=== PATIENT | female | born 1945 | race Caucasian/White ===

== ENCOUNTER → 2016-12-21 09:47 | Outpatient (CLI) | payer MEDICARE, OTHER ==
[2015-07-13 08:38] VITALS: BMI 35.8
[~2016-12-21 09:47] MED LIST: BAYER CHEWABLE81 MG PO; CALCIUM 600+D T1 TA1 PO; LISINOPRIL10 MG PO; OMEPRAZOLE40 MG PO; OXYBUTYNIN CHLOR5 MG PO; VALIUM 2 MG TAB2 MG PO
== END | disposition home or self-care (01) ==
LOC: D.OPS 09:47 → D.SP 10:30
DX: M25.552 Pain in left hip (principal)

== ENCOUNTER → 2017-01-10 08:40 | Outpatient (CLI) | payer MEDICARE, OTHER ==
[2015-07-13 08:38] VITALS: BMI 35.8
--- NOTE | 2017-01-10 12:03 | NUR ---
Nutrition education for pre/post-op bariatric surgery: S: Pt reports she used to be 135-140# in 2006; however, after she hurt her back she started to gain wt and now weighs 220#. Pt admits to overeating rice, pasta, bread due to being on a fixed income and those foods are cheaper to buy. Pt reports she is unable to exercise much due to back surgery and OA of the feet, knees, hips and spine. Pt does have a recumbent bicycle she has started to ride. Pt eats most meals at home; however, pt does not like to cook and uses convenience foods. Pt does not sleep well due to increased pain. Pt has no family support here; all her friends live in [place]. O: 71 year old female Ht: 5'5" Wt: 220# IBW: 125# +/-10% BMI: 36.6 PMH: Back surgery, OA A: Reviewed pre/post-op diet phases. Discussed clear liquids, full liquids, pureed, soft and regular diet and reviewed sample menus of all. Discussed liquids between meals; no straws; 3 ounce meal size; protein needs; protein supplements; no sweets, carbonated drinks, high fat foods; pouch stretching; daily supplements. Discussed pts weight goal post-surgery. Pt with fair understanding of information provided. RDN feels pt with realistic expectations for weight loss after surgery and will be compliant with post-surgery diet. P: Provided pt with printed diet information and RDN name and phone number. RDN will be available if needed. Thank you for the consult.
== END | disposition home or self-care (01) ==
LOC: D.FANS 08:40
DX: E66.9 Obesity, unspecified (principal)

== ENCOUNTER → 2017-01-19 11:40 | Outpatient (CLI) | payer MEDICARE, OTHER ==
[2015-07-13 08:38] VITALS: BMI 35.8
== END | disposition home or self-care (01) ==
LOC: D.RAD 01-17 10:30 → D.CT 01-17 11:30 → D.RAD 11:40
DX: M54.16 Radiculopathy, lumbar region (principal)

== ENCOUNTER → 2017-03-21 07:16 | Outpatient (CLI) | payer MEDICARE, OTHER ==
[2015-07-13 08:38] VITALS: BMI 35.8
== END | disposition home or self-care (01) ==
LOC: D.OPS 03-20 08:13 → D.RAD 08:00 → D.OPS 08:00
DX: M25.552 Pain in left hip (principal); M16.0 Bilateral primary osteoarthritis of hip

== ENCOUNTER → 2017-04-11 10:39 | Outpatient (CLI) | payer MEDICARE, OTHER ==
[2015-07-13 08:38] VITALS: BMI 35.8
[~2017-04-11 10:39] MED LIST changes: +HYDROCODON-ACE1 EAC7 PO; -LISINOPRIL10 MG PO; +VESICARE5 MG PO; +ZESTRIL10 MG PO; +ZOFRAN ODT4 MG/UDTAB PO
== END | disposition home or self-care (01) ==
LOC: D.RT 10:39
DX: R06.09 Other forms of dyspnea (principal)

== ENCOUNTER → 2017-04-27 08:22 | Outpatient (CLI) | payer MEDICARE, OTHER ==
[2015-07-13 08:38] VITALS: BMI 35.8
[2017-04-27 10:00] LABS: BASOPHILS 0.2 % (0-2); EOSINOPHILS 0.8 % (0-7); HEMATOCRIT 41.6 % (36.0-48.0); HEMOGLOBIN 13.4 g/dL (12-16); IMMATURE GRANULOCYTES 0.1 % (0-5); MCH 28.3 pg (26.0-34.0); MCHC 32.2 g/dL (31.0-37.0); MCV 87.9 fL (80.0-100.0); MEAN PLATELET VOLUME 9.5 fL (7.4-10.4); MONOCYTES 7.6 % (2-11); NEUTROPHILS 67.3 % (40-80); PLATELET COUNT 263 10x3/uL (130-400); RBC 4.73 10x6/uL (4.00-5.40); RDW 14.4 % (11.5-14.5); WBC 9.6 10x3/uL (4.8-10.8)
[2017-04-27 10:18] LABS: APPEARANCE HAZY (CLEAR); BILIRUBIN NEGATIVE (NEGATIVE); COLOR YELLOW (YELLOW); GLUCOSE NEGATIVE (NEGATIVE); HEMOGLOBIN A1C 6.2 % (4.8-6.0); KETONE NEGATIVE (NEGATIVE); NITRITE NEGATIVE (NEGATIVE); PROTEIN TRACE mg/dL (NEGATIVE); SPECIFIC GRAVITY 1.025 (1.005-1.020); UROBILINOGEN NORMAL (NORMAL)
[2017-04-27 10:21] LABS: APTT 31.8 SECONDS (22.8-39.4); BACTERIA MODERATE /hpf (NONE SEEN); EPITHELIAL CELLS 0-5 /hpf (0-5); HYALINE CAST 0-5 /lpf (NONE SEEN); INR 0.96 (0.85-1.17); MUCUS >1+ /lpf (NONE SEEN); PROTIME 12.7 SECONDS (11.6-15.0); RED CELLS - URINE 0-5 /hpf (0-5)
[2017-04-27 10:33] LABS: % SATURATION 18 % (15-55); IRON 63 ug/dl (35-150); TOTAL IRON BIND CAPACITY 349 ug/dl (260-445); UNSAT IRON BIND CAPACITY 286 ug/dl (150-375)
[2017-04-27 10:46] LABS: ALBUMIN 3.6 g/dL (3.4-5.0); ANION GAP 13.2 mmol/L (8-16); BILIRUBIN - DIRECT 0.08 mg/dL (0.00-0.30); BILIRUBIN - INDIRECT 0.35 mg/dL (0.00-1.00); BILIRUBIN - TOTAL 0.43 mg/dL (0.2-1.3); CARBON DIOXIDE 28.5 mmol/L (21.0-32.0); CHOL - HDL RATIO 3.2 ratio (2.3-4.1); CREATININE - SERUM 0.9 mg/dL (0.6-1.3); LDL-HDL RATIO 1.9 ratio (1.5-3.5); POTASSIUM - SERUM 3.7 mmol/L (3.5-5.1); PROTEIN - SERUM 7.3 g/dL (6.4-8.2); T4 THYROXINE 11.3 ug/dL (4.7-13.3); THYROID STIMULATING HORMONE 1.74 uIU/mL (0.36-3.74)
[2017-04-28 08:16] LABS: FOLATE (FOLIC ACID) - SERUM >20.0 ng/mL (>3.0)
== END | disposition home or self-care (01) ==
LOC: D.LAB 08:15 → D.RAD 08:30
PROVIDERS: Surgery
DX: E66.01 Morbid (severe) obesity due to excess calories (principal)

== ENCOUNTER 2017-05-14 06:24 | Day surgery (SDC) | payer MEDICARE, OTHER ==
[~2017-05-14] VITALS: Ht 165.1 cm; Wt 100.5 kg
[~2017-05-14 06:24] MED LIST changes: -HYDROCODON-ACE1 EAC7 PO; -VESICARE5 MG PO; -ZOFRAN ODT4 MG/UDTAB PO
[2017-05-14 07:01] LABS: HEMATOCRIT 42.2 % (36.0-48.0); HEMOGLOBIN 13.3 g/dL (12-16); MCH 28.1 pg (26.0-34.0); MCHC 31.5 g/dL (31.0-37.0); MCV 89.2 fL (80.0-100.0); MEAN PLATELET VOLUME 9.7 fL (7.4-10.4); RBC 4.73 10x6/uL (4.00-5.40); RDW 14.2 % (11.5-14.5); WBC 7.8 10x3/uL (4.8-10.8)
[2017-05-14] MEDS ORDERED: VESICARE5 MG PO (07:23)
[2017-05-14 07:28] VITALS: BP 132/64; Ht 165.1 cm; Wt 100.5 kg
--- NOTE | 2017-05-14 09:25 | NUR ---
PT REC'D TO ROOM VIA STRETCHER. AWAKE, ALERT, ORIENTED.
--- NOTE | 2017-05-14 09:40 | NUR ---
PT UP TO BR. FULL LIQ DIET PROVIDED.
--- NOTE | 2017-05-14 10:00 | NUR ---
IF D/C'D CATH INTACT.
--- NOTE | 2017-05-14 10:15 | NUR ---
D/C INSTRUCTIONS EXPLAINED TO PT. VOICED UNDERSTANDING. COPIES OF ALL GIVEN TO PT.
--- NOTE | 2017-05-14 10:30 | NUR ---
D/C'D HOME VIA W/C TO PRIVATE CAR.
== END 2017-05-14 12:28 | disposition home or self-care (01) ==
LOC: D.OPS 06:24
PROVIDERS: Anesthesiology
DX: K21.9 Gastro-esophageal reflux disease without esophagitis (principal); I10 Essential (primary) hypertension; E66.9 Obesity, unspecified; K44.9 Diaphragmatic hernia without obstruction or gangrene; Z01.812 Encounter for preprocedural laboratory examination

== ENCOUNTER 2017-06-20 06:01 | Inpatient (IN) | payer MEDICARE, OTHER ==
[2017-06-19 08:51] LABS: HEMATOCRIT 42.8 % (36.0-48.0); HEMOGLOBIN 13.9 g/dL (12-16); MCH 28.8 pg (26.0-34.0); MCHC 32.5 g/dL (31.0-37.0); MCV 88.6 fL (80.0-100.0); MEAN PLATELET VOLUME 9.6 fL (7.4-10.4); RBC 4.83 10x6/uL (4.00-5.40); WBC 10.2 10x3/uL (4.8-10.8)
[~2017-06-20] VITALS: Ht 165.1 cm; Wt 102.3 kg
--- NOTE | ~2017-06-20 | DS ---
PATIENT:AYLIN OSORIO :49 MEDICAL RECORD: [id number] DISCHARGE SUMMARY ADMISSION DATE: 06/20/17 DISCHARGE DATE: 06/21/17 DATE OF ADMISSION: 06/20/2017 DATE OF DISCHARGE: 06/21/2017 ADMITTING PHYSICIAN: Tay Cardenas MD DISCHARGING PHYSICIAN: Tay Cardenas MD HOSPITAL COURSE: This is a 72-year-old female, who was admitted to the hospital for an elective laparoscopic vertical sleeve gastrectomy. The patient tolerated the procedure well and postop was transferred to the floor in stable condition. Her postoperative course was without complication. She was started post-procedure on her bariatric phase 1 clear liquid diet. On postoperative day 1, she was sent for a Gastrografin swallow, which was within normal limits. She was advanced to a bariatric phase 2 liquid diet. At the time of discharge, she was ambulating independently. She is voiding without difficulty. She was tolerating a diet and her pain was well controlled on oral pain medicines. DISCHARGE DIET: Bariatric phase 2 clear liquid diet for 2 weeks. FOLLOWUP: With Dr. Cardenas in 2 weeks. WOUND CARE: The patient may shower, Triple ointment to wound daily. ACTIVITY: As tolerated. No strenuous activity or heavy lifting for 2 weeks. DISCHARGE CONDITION: Stable. TRANSINT:[id number] Voice Confirmation ID: [id number] DOCUMENT ID: [id number] TAY CARDENAS MD at 0756 CC: [id number] DICTATION DATE: 07/18/17 1441 FACILITY MAINTENANCE WORKER: 07/19/17 0706 DIS IN 06/21/17 [place] [id number]
[~2017-06-20 06:01] MED LIST changes: +VESICARE5 MG PO
[2017-06-20 07:18] VITALS: BP 146/79; BMI 37.5
[2017-06-20 11:38] VITALS: BP 120/54; Ht 165.1 cm; Wt 102.3 kg
[2017-06-20 16:32] VITALS: BP 116/59
[2017-06-20 23:00] VITALS: BP 98/72
[2017-06-21 05:00] VITALS: BP 102/88
[2017-06-21 06:08] LABS: BASOPHILS 0.1 % (0-2); EOSINOPHILS 0.1 % (0-7); HEMATOCRIT 36.2 % (36.0-48.0); HEMOGLOBIN 11.4 g/dL (12-16); IMMATURE GRANULOCYTES 0.2 % (0-5); LYMPHOCYTES 15.9 % (15-50); MCH 28.3 pg (26.0-34.0); MCHC 31.5 g/dL (31.0-37.0); MCV 89.8 fL (80.0-100.0); MEAN PLATELET VOLUME 10.5 fL (7.4-10.4); MONOCYTES 6.5 % (2-11); NEUTROPHILS 77.2 % (40-80); PLATELET COUNT 237 10x3/uL (130-400); RBC 4.03 10x6/uL (4.00-5.40); RDW 13.1 % (11.5-14.5)
[2017-06-21 06:30] LABS: ALBUMIN 3.1 g/dL (3.4-5.0); ALKALINE PHOSPHATASE 85 U/L (46-116); ALT (SGPT) 29 U/L (10-68); BILIRUBIN - TOTAL 0.55 mg/dL (0.2-1.3); CALC OSMOLALITY 272 mosm/kg (275-300); CALCIUM 8.8 mg/dL (8.5-10.1); CARBON DIOXIDE 26.1 mmol/L (21.0-32.0); CHLORIDE - SERUM 101 mmol/L (98-107); CREATININE - SERUM 0.8 mg/dL (0.6-1.3); GLUCOSE 103 mg/dL (74-106); POTASSIUM - SERUM 4.3 mmol/L (3.5-5.1); PROTEIN - SERUM 5.7 g/dL (6.4-8.2); SODIUM 137 mmol/L (136-145); UREA NITROGEN 11 mg/dL (7-18); eGFR NON AFRICAN AMERICAN 75 mL/min (90-120)
[2017-06-21] MEDS ORDERED: HYDROCODON-ACE1 EAC7 PO (10:36)
[2017-06-21] MEDS ORDERED: ZOFRAN ODT4 MG/UDTAB PO (10:37)
== END 2017-06-21 14:18 | disposition home or self-care (01) | DRG 621 ==
LOC: D.SDCHOLD 06:01 → D.MS 06:01 → D.SDCHOLD 08:00 → D.MS 09:47
PROVIDERS: Anesthesiology; Surgery
PROC: 0DB64Z3 Excision of Stomach, Percutaneous Endoscopic Approach, Vertical (ICD-10-PCS; principal; 2017-06-20 08:00)
DX: E66.01 Morbid (severe) obesity due to excess calories (principal); Z68.37 Body mass index [BMI] 37.0-37.9, adult; K21.9 Gastro-esophageal reflux disease without esophagitis

== ENCOUNTER → 2018-01-17 15:01 | Outpatient (CLI) | payer MEDICARE, OTHER ==
[2017-06-20 11:38] VITALS: BMI 37.5
[~2018-01-17 15:01] MED LIST changes: +HYDROCODON-ACE1 EAC7 PO; +ZOFRAN ODT4 MG/UDTAB PO
[2018-01-17 15:39] LABS: BASOPHILS 0.4 % (0-2); EOSINOPHILS 2.1 % (0-7); HEMATOCRIT 40.8 % (36.0-48.0); IMMATURE GRANULOCYTES 0.2 % (0-5); LYMPHOCYTES 26.6 % (15-50); MCH 27.6 pg (26.0-34.0); MCHC 31.9 g/dL (31.0-37.0); MCV 86.6 fL (80.0-100.0); MEAN PLATELET VOLUME 10.4 fL (7.4-10.4); MONOCYTES 7.3 % (2-11); NEUTROPHILS 63.4 % (40-80); RBC 4.71 10x6/uL (4.00-5.40); RDW 12.7 % (11.5-14.5); WBC 9.4 10x3/uL (4.8-10.8)
[2018-01-17 15:42] LABS: PLATELET COUNT 293 10x3/uL (130-400)
[2018-01-17 16:29] LABS: ALBUMIN 3.4 g/dL (3.4-5.0); ALKALINE PHOSPHATASE 125 U/L (46-116); ALT (SGPT) 13 U/L (10-68); BILIRUBIN - TOTAL 0.27 mg/dL (0.2-1.3); CALC OSMOLALITY 287 mosm/kg (275-300); CALCIUM 9.3 mg/dL (8.5-10.1); CARBON DIOXIDE 32.6 mmol/L (21.0-32.0); CHLORIDE - SERUM 105 mmol/L (98-107); CHOL - HDL RATIO 4.7 ratio (2.3-4.1); CHOLESTEROL, TOTAL 252 mg/dL (0-200); CREATININE - SERUM 0.8 mg/dL (0.6-1.3); GLUCOSE 105 mg/dL (74-106); HDL CHOLESTEROL 54 mg/dL (32-96); LDL CHOLESTEROL 163 mg/dL (0-100); POTASSIUM - SERUM 4.4 mmol/L (3.5-5.1); PROTEIN - SERUM 6.9 g/dL (6.4-8.2); SODIUM 144 mmol/L (136-145); TRIGLYCERIDE 179 mg/dL (30-200); UREA NITROGEN 15 mg/dL (7-18); eGFR NON AFRICAN AMERICAN 75 mL/min (90-120)
== END | disposition home or self-care (01) ==
LOC: D.LAB 15:01
PROVIDERS: Surgery
DX: Z01.812 Encounter for preprocedural laboratory examination (principal); K21.9 Gastro-esophageal reflux disease without esophagitis; I10 Essential (primary) hypertension; E78.5 Hyperlipidemia, unspecified

== ENCOUNTER → 2018-04-29 13:26 | Outpatient (CLI) | payer MEDICARE, OTHER ==
[2017-06-20 11:38] VITALS: BMI 37.5
[~2018-04-29 13:26] MED LIST changes: +CENTRUM SILVER1 EAC3 PO
[2018-04-29 13:53] LABS: BASOPHILS 0.4 % (0-2); EOSINOPHILS 1.2 % (0-7); HEMATOCRIT 42.3 % (36.0-48.0); HEMOGLOBIN 13.8 g/dL (12-16); IMMATURE GRANULOCYTES 0.1 % (0-5); MCH 28.2 pg (26.0-34.0); MCHC 32.6 g/dL (31.0-37.0); MCV 86.5 fL (80.0-100.0); MEAN PLATELET VOLUME 9.9 fL (7.4-10.4); MONOCYTES 5.9 % (2-11); NEUTROPHILS 61.4 % (40-80); PLATELET COUNT 239 10x3/uL (130-400); RBC 4.89 10x6/uL (4.00-5.40); RDW 14.8 % (11.5-14.5); WBC 9.5 10x3/uL (4.8-10.8)
[2018-04-29 14:03] LABS: CREATININE - SERUM 0.8 mg/dL (0.6-1.3)
== END | disposition home or self-care (01) ==
LOC: D.RAD 13:26
PROVIDERS: Orthopaedic Surgery
DX: Z01.812 Encounter for preprocedural laboratory examination (principal); K21.9 Gastro-esophageal reflux disease without esophagitis; I10 Essential (primary) hypertension; E78.5 Hyperlipidemia, unspecified; M25.312 Other instability, left shoulder

== ENCOUNTER 2018-05-13 08:05 | Day surgery (SDC) | payer MEDICARE, OTHER ==
[2018-05-10 12:48] LABS: BASOPHILS 0.5 % (0-2); EOSINOPHILS 1.5 % (0-7); HEMATOCRIT 44.3 % (36.0-48.0); HEMOGLOBIN 14.5 g/dL (12-16); IMMATURE GRANULOCYTES 0.2 % (0-5); LYMPHOCYTES 27.2 % (15-50); MCH 28.8 pg (26.0-34.0); MCHC 32.7 g/dL (31.0-37.0); MCV 88.1 fL (80.0-100.0); MEAN PLATELET VOLUME 10.5 fL (7.4-10.4); MONOCYTES 5.4 % (2-11); NEUTROPHILS 65.2 % (40-80); PLATELET COUNT 257 10x3/uL (130-400); RBC 5.03 10x6/uL (4.00-5.40); RDW 14.3 % (11.5-14.5); WBC 8.8 10x3/uL (4.8-10.8)
[2018-05-10 13:02] LABS: CALC OSMOLALITY 280 mosm/kg (275-300); CALCIUM 9.8 mg/dL (8.5-10.1); CARBON DIOXIDE 31.8 mmol/L (21.0-32.0); CHLORIDE - SERUM 101 mmol/L (98-107); CREATININE - SERUM 0.8 mg/dL (0.6-1.3); GLUCOSE 120 mg/dL (74-106); POTASSIUM - SERUM 4.2 mmol/L (3.5-5.1); SODIUM 140 mmol/L (136-145); UREA NITROGEN 16 mg/dL (7-18); eGFR NON AFRICAN AMERICAN 75 mL/min (90-120)
[~2018-05-13] VITALS: Ht 165.1 cm; Wt 72.6 kg
--- NOTE | ~2018-05-13 | OP ---
PATIENT NAME: AYLIN OSORIO MEDICAL RECORD: [id number] :49 LOCATION:D.OPS ADMISSION DATE: SURGEON: TAY ROTH MD DATE OF OPERATION: 05/13/2018 PREOPERATIVE DIAGNOSIS: Loose body of the left shoulder with impingement syndrome. POSTOPERATIVE DIAGNOSIS: Loose body of the left shoulder with impingement syndrome. PROCEDURES: 1. Arthroscopic removal of loose bodies. 2. Arthroscopic distal clavicle excision done through separate incision. 3. Arthroscopic subacromial decompression with acromioplasty and bursectomy. SURGEON: Tay Roth MD ANESTHESIA: General. INTRAOPERATIVE COMPLICATIONS: None. SUMMARY OF PATHOLOGIC FINDINGS: The patient had a very large osteochondral loose body in her shoulder that had done some damage to the articular aspect; however, not substantial enough that I think would cause need for further operative intervention. 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 OPERATIVE SUMMARY IN DETAIL: After obtaining appropriate preoperative orthopedic surgery consent as well as anesthetic consultation, evaluation, and clearance, the patient was brought to the operating room and placed on the operating table in supine position. After general laryngeal mask airway was administered, the patient was placed in right lateral decubitus position. All pressure points were well padded to include down leg peroneal pad as well as axillary roll. The patient was held firmly to the operating table using the vacuum pack suction system. The patient's left upper extremity and shoulder were then prepped and draped in routine sterile fashion. The arm was held in the Arthrex traction boom in 30 degrees of forward flexion, 30 degrees of abduction, 10 pounds of traction laterally. Arthroscopy was established in the glenohumeral joint from the posterior portal. Anterior portal was established from the anterior safe interval. Diagnostic arthroscopy immediately showed these large loose bodies. They were photographed arthroscopically. Serial and sequential removal were down with a combination of both arthroscopic resectors as well as straight graspers. Having removed all this, the remainder of the diagnostic arthroscopy showed no evidence of rotator cuff tearing, only mild biceps tendonitis was noted. Attention was then turned to the subacromial space. While on the subacromial space, a combination of an Arthrex tissue ablation system as well as a 4.0 resector was utilized to denude the undersurface of the acromion of all soft tissue elements and release the coracoacromial ligament. A 5-0 barrel bur was then used to perform acromioplasty at the level of acromioclavicular joint. Having completed this, through a separate anterior arthroscopic incision, under direct arthroscopic visualization, distal clavicle was excised for 1 cm. Having completed this, arthroscopy portals were closed in OPERATIVE REPORT [id number] AYLIN OSORIO routine interrupted fashion using 4-0 Prolene. Sterile dressings were applied. The patient was awakened, taken to recovery room in stable condition. All final needle and sponge counts were correct. TRANSINT:[id number] Voice Confirmation ID: [id number] DOCUMENT ID: [id number] GONZALEZ NICHOLSON, TAY AMEZQUITA at 0840 CC: [id number] DICTATION DATE: 05/22/18 1650 MULTISKILL OPERATOR: 05/23/18 0018 [facility] 05/13/18 [facility] [address] [place] [address]
[2018-05-13 08:36] VITALS: Ht 165.1 cm; Wt 72.6 kg
== END 2018-05-13 13:30 | disposition home or self-care (01) ==
LOC: D.OPS 08:05 → D.PAN 10:15 → D.OPS 11:10 → D.PAN 11:10 → D.OPS 12:45 → D.PAN 12:45 → D.OPS 13:30
PROVIDERS: Anesthesiology
DX: M24.012 Loose body in left shoulder (principal); M75.42 Impingement syndrome of left shoulder

== ENCOUNTER → 2018-06-11 13:26 | Outpatient (CLI) | payer MEDICARE, OTHER ==
[2018-05-13 08:36] VITALS: BMI 26.6
== END | disposition home or self-care (01) ==
LOC: D.CT 13:26
DX: M54.2 Cervicalgia (principal)

== ENCOUNTER → 2018-10-04 13:28 | Outpatient (CLI) | payer MEDICARE, OTHER ==
[2018-05-13 08:36] VITALS: BMI 26.6
== END | disposition home or self-care (01) ==
LOC: D.HCCARDIO 13:28
PROVIDERS: ATTEND Internal Medicine Cardiovascular Disease
DX: I25.10 Atherosclerotic heart disease of native coronary artery without angina pectoris (principal)

== ENCOUNTER 2018-11-04 09:54 | Day surgery (SDC) | payer MEDICARE, OTHER ==
[~2018-11-04] VITALS: Ht 165.1 cm; Wt 70.3 kg
[~2018-11-04 09:54] MED LIST changes: +ACETAMINOPHEN500 M1 PO; +MECLIZINE HCL12.5 MG PO
[2018-11-04 10:17] LABS: HEMATOCRIT 42.2 % (36.0-48.0); HEMOGLOBIN 13.8 g/dL (12-16); MCH 29.7 pg (26.0-34.0); MCHC 32.7 g/dL (31.0-37.0); MCV 90.8 fL (80.0-100.0); MEAN PLATELET VOLUME 9.7 fL (7.4-10.4); RBC 4.65 10x6/uL (4.00-5.40); RDW 13.1 % (11.5-14.5); WBC 8.5 10x3/uL (4.8-10.8)
[2018-11-04 11:00] VITALS: BP 142/67; Ht 165.1 cm; Wt 70.3 kg
[2018-11-04] MEDS ORDERED: HYDROCODON-ACE1 EA10 PO (13:13)
--- NOTE | 2018-11-04 15:27 | NUR ---
DC INSTRUCTIONS GIVEN TO PT. STATES UNDERSTANDNING. DC'D IV CATH FULLY INTACT. PT LEFT UNIT VIA WC AT 1520
--- NOTE | 2018-11-11 07:51 | OP ---
PATIENT NAME: AYLIN OSORIO MEDICAL RECORD: [id number] :49 LOCATION:[facility] ADMISSION DATE: SURGEON: TAY ROTH MD DATE OF OPERATION: 11/04/2018 PREOPERATIVE DIAGNOSIS: Adhesive capsulitis of the left shoulder (frozen shoulder syndrome). POSTOPERATIVE DIAGNOSIS: Adhesive capsulitis of the left shoulder (frozen shoulder syndrome). PROCEDURE: Manipulation under anesthesia. SURGEON: Tay Roth MD ANESTHESIA: TIVA. INTRAOPERATIVE COMPLICATIONS: None. OPERATIVE SUMMARY IN DETAIL: After obtaining the appropriate preoperative orthopedic surgery consents as well as anesthetic consultation, evaluation and clearance, the patient was brought to the operating room and left on a hospital gurskippack. After adequate TIVA anesthesia was administered and a preoperative scalene block had been performed, the patient's scapula was stabilized with good stabilization of the scapula, the shoulder was manipulated first with abduction with good release followed by external rotation, internal rotation, flexion, and extension. This resulted in excellent oriental orthodox of the patient's range of motion. She was taken back to recovery in stable condition. TRANSINT:[id number] Voice Confirmation ID: [id number] DOCUMENT ID: [id number] TYA ROTH MD at 0751 CC: [id number] DICTATION DATE: 11/08/18 1257 TRANSPORTATION SUPERVISOR: 11/08/182010 [facility] 11/04/[address] [address]
== END 2018-11-04 15:20 | disposition home or self-care (01) ==
LOC: D.OPS 09:54 → D.PAN 17:30 → D.OPS 17:30
PROVIDERS: Anesthesiology; ATTEND Orthopaedic Surgery
DX: M75.02 Adhesive capsulitis of left shoulder (principal); Z01.812 Encounter for preprocedural laboratory examination

== ENCOUNTER → 2019-05-13 15:30 | Outpatient (CLI) | payer MEDICARE, OTHER ==
[2018-11-04 11:00] VITALS: BMI 26.6
[~2019-05-13 15:30] MED LIST changes: +HYDROCODON-ACE1 EA10 PO
[2019-05-13 16:05] LABS: BASOPHILS 0.4 % (0-2); EOSINOPHILS 0.8 % (0-7); HEMATOCRIT 44.6 % (36.0-48.0); HEMOGLOBIN 14.4 g/dL (12-16); IMMATURE GRANULOCYTES 0.2 % (0-5); LYMPHOCYTES 24.5 % (15-50); MCH 28.9 pg (26.0-34.0); MCHC 32.3 g/dL (31.0-37.0); MCV 89.4 fL (80.0-100.0); MEAN PLATELET VOLUME 9.7 fL (7.4-10.4); MONOCYTES 6.4 % (2-11); NEUTROPHILS 67.7 % (40-80); PLATELET COUNT 237 10x3/uL (130-400); RBC 4.99 10x6/uL (4.00-5.40); RDW 12.2 % (11.5-14.5); WBC 8.3 10x3/uL (4.8-10.8)
[2019-05-13 17:01] LABS: ANION GAP 13.2 mmol/L (8-16); BILIRUBIN - TOTAL 0.6 mg/dL (0.2-1.3); CALCIUM 9.1 mg/dL (8.5-10.1); CARBON DIOXIDE 27.7 mmol/L (21.0-32.0); CHOL - HDL RATIO 3.1 ratio (2.3-4.1); CREATININE - SERUM 0.9 mg/dL (0.6-1.3); LDL-HDL RATIO 1.9 ratio (1.5-3.5); POTASSIUM - SERUM 3.9 mmol/L (3.5-5.1); PROTEIN - SERUM 7.2 g/dL (6.4-8.2)
== END | disposition home or self-care (01) ==
LOC: D.LABREF 15:30
PROVIDERS: ATTEND Surgery
DX: E66.01 Morbid (severe) obesity due to excess calories (principal)

== ENCOUNTER 2019-06-11 06:24 | Day surgery (SDC) | payer MEDICARE, OTHER ==
[~2019-06-11] VITALS: Ht 165.1 cm; Wt 75.9 kg
[2019-06-11 06:54] LABS: HEMATOCRIT 43.1 % (36.0-48.0); MCH 28.7 pg (26.0-34.0); MCHC 32.5 g/dL (31.0-37.0); MCV 88.5 fL (80.0-100.0); MEAN PLATELET VOLUME 9.6 fL (7.4-10.4); RBC 4.87 10x6/uL (4.00-5.40); RDW 12.7 % (11.5-14.5); WBC 7.7 10x3/uL (4.8-10.8)
[2019-06-11 07:28] VITALS: BP 129/65; Ht 165.1 cm; Wt 75.9 kg
--- NOTE | 2019-06-11 10:53 | NUR ---
1038-REC'D FROM GI LAB,AWAKE AND ALERT,DENIES PAIN.VSS. ABD SOFT NON DISTENDED. BS ACTIVE X 4 QUADS. NO NAUSEA OR VOMITING. REVIEWED POST OPERATIVE DISCHARGE INSTRUCTIONS. VERBALIZED UNDERSTANDING. FAMILY AT BEDSIDE. CL IN EASY REACH.
--- NOTE | 2019-06-11 10:54 | NUR ---
1050-FULL LIQUID TRAY TO ROOM
--- NOTE | 2019-06-11 11:39 | NUR ---
1120-DISCHARGE CRITERIA MET. ABLE TO AMBULATE TO RESTROOM WITH SLOW STEADY GAIT. PASSING GAS WITHOUT DIFFICULTIES,VSS,DENIES PAIN. ABD SOFT NON DISTENDED,BS ACTIVE X 4 QUADS. VSS. REMOVED IV FROM LEFT ARM WITH CATH INTACT,DISPOSED INTO SHARPS,COVERED SITE WITH COTTON BALL.SECURED WITH BANDAID. REVIEWED POST OPERATIVE INSTRUCTIONS AND FOLLOW UP WITH PT. VERBALIZED UNDERSTANDING.
--- NOTE | 2019-06-11 11:41 | NUR ---
1135-PT DRESSED. ESCORTED OUT VIA W/C BY STAFF. SISTER AND LAW AWAITING TO DRIVE HOME. DISCHARGE PAPERWORK IN HAND. VERY P[place]AS[employer] [place]ADY
== END 2019-06-11 11:30 | disposition home or self-care (01) ==
LOC: D.OPS 06:24
PROVIDERS: Anesthesiology; ATTEND Surgery
DX: Z12.11 Encounter for screening for malignant neoplasm of colon (principal); K57.90 Diverticulosis of intestine, part unspecified, without perforation or abscess without bleeding; Z86.010 Personal history of colon polyps; K21.9 Gastro-esophageal reflux disease without esophagitis; I10 Essential (primary) hypertension; E78.2 Mixed hyperlipidemia; E66.01 Morbid (severe) obesity due to excess calories; Z68.37 Body mass index [BMI] 37.0-37.9, adult

== ENCOUNTER → 2019-10-27 12:53 | Outpatient (CLI) | payer MEDICARE, OTHER ==
[2019-06-11 07:28] VITALS: BMI 27.8
== END | disposition home or self-care (01) ==
LOC: D.HCCECHO 12:53
PROVIDERS: ATTEND Internal Medicine Cardiovascular Disease
DX: I05.9 Rheumatic mitral valve disease, unspecified (principal)